=== PATIENT | female | born 2000 | race Caucasian/White ===

== ENCOUNTER 2021-04-02 23:31 | Emergency (ER) | payer MEDICAID, OTHER ==
[~2021-04-02] VITALS: Ht 170.2 cm; Wt 80.5 kg
[2021-04-02 23:32] VITALS: BP 133/93
[2021-04-02] MEDS ORDERED: MIRE1IUD IU (23:38)
== END 2021-04-03 00:36 | disposition left against medical advice (07) ==
LOC: M ED 23:31
DX: Z53.21 Procedure and treatment not carried out due to patient leaving prior to being seen by health care provider (principal)